=== PATIENT | male | born 1985 | race Caucasian/White ===

== ENCOUNTER 2021-05-10 16:00 | Emergency (ER) | payer MEDICAID ==
[~2021-05-10] VITALS: Ht 185.4 cm; Wt 90.9 kg
--- NOTE | 2021-05-10 16:15 | NUR ---
Pt. [facility] on [facility] 5150 for DTS. Per officer, he was running through traffic and and had to be physically restrained from running into traffic for his safety. Pt. is very psychotic AEB yelling out, thrashing about, and making non-sensical delusional statements. Security stood by for safety precautions while handcuffs were removed and pt. was assisted by staff to change into green scrubs with some resistance.
[2021-05-10] MEDS ORDERED: haloperidol lactate 5mg/ml inj IM ONE (16:25)
[2021-05-10] MEDS ORDERED: LORazepam 2 mg/ml vial IM ONE (16:25)
[2021-05-10] MEDS ORDERED: diphenhydrAMINE 50 mg/ml inj IM ONE (16:25)
[2021-05-10 16:50] LABS: BASOPHILS # (AUTO) 0.2 X10'3 (0-0.2); BASOPHILS % (AUTO) 1.3 % (0-1); EOSINOPHILS # (AUTO) 0.2 X10'3 (0-0.9); EOSINOPHILS % (AUTO) 1.5 % (0-6); HEMATOCRIT 39.1 % (42.0-52.0); HEMOGLOBIN 13.6 g/dl (14.0-17.9); LYMPHOCYTES # (AUTO) 3.7 X10'3 (1.1-4.8); LYMPHOCYTES % (AUTO) 29.9 % (21-51); MEAN CORPUSCULAR HEMOGLOBIN 30.3 PG (27.0-31.0); MEAN CORPUSCULAR HGB CONC 34.7 g/dL (33.0-36.5); MEAN CORPUSCULAR VOLUME 87.2 FL (78-98); MEAN PLATELET VOLUME 7.7 FL (7.4-10.4); MONOCYTES # (AUTO) 1.2 X10'3 (0-0.9); MONOCYTES % (AUTO) 9.7 % (2-12); NEUTROPHILS # (AUTO) 7.2 X10'3 (1.8-7.7); NEUTROPHILS % (AUTO) 57.6 % (42-75); PLATELET COUNT 425 X10'3 (140-440); RED BLOOD COUNT 4.48 X10'6 (4.70-6.10); RED CELL DISTRIBUTION WIDTH 15.5 % (11.5-14.5); WHITE BLOOD COUNT 12.5 X10'3 (4.5-11.0)
--- NOTE | 2021-05-10 16:50 | NUR ---
Pt. continued to exhibit increasing psychosis; yelling out profanities, and some aggression towards staff AEB posturing. He makes paranoid delusional statements and when questioned by staff why he was running through traffic pt. yells out, "They were [place] our [place], polluting [place] with [place]!" Pt. denies any S/I, however appears to be internally preoccupied. Security was called to standby for safety, and orders were obtained for IM Ativan 2mg, Benadryl 50mg, and Haldol 10mg. Pt. refused medications, but was compliant when show of force was shown by security and staff. Medications administered in bilateral ventrogluteal areas. Will continue to monitor.
[2021-05-10 17:07] LABS: ALANINE AMINOTRANSFERASE 24 U/L (12-78); ALBUMIN 4.7 G/DL (3.4-5.0); ALBUMIN/GLOBULIN RATIO 1.4 (1.1-1.5); ALKALINE PHOSPHATASE 75 IU/L (46-116); ANION GAP 15 (8-16); ASPARTATE AMINO TRANSFERASE 32 U/L (10-37); BILIRUBIN,TOTAL 0.7 MG/DL (0.1-1.0); BLOOD UREA NITROGEN 11 MG/DL (7-18); BUN/CREATININE RATIO 8.5 (5.4-32.0); CALCIUM 9.6 MG/DL (8.5-10.1); CHLORIDE 101 MMOL/L (99-107); GLUCOSE 144 MG/DL (70-104); POTASSIUM 3.2 MMOL/L (3.5-5.1); SODIUM 138 MMOL/L (135-145); TOTAL CARBON DIOXIDE 21.9 MMOL/L (24-32); eGFR 63 ML/MIN
[2021-05-10 17:17] LABS: ETHANOL < 0.010 GM/DL (0.0-0.010)
--- NOTE | 2021-05-10 17:23 | NUR ---
Pt states he has been seen at [facility] in [place] [phone]. Endoscopy Nurse called for medical records - department is closed through the holiday. LE said pt's parents were on their way. Pt unable to remember pt's phone number. When asked he yells out "they left me" then talks non sensical.
[2021-05-10] MEDS ORDERED: potassium Cl 20 mEq SR tablet PO STA (17:36)
--- NOTE | 2021-05-10 17:38 | NUR ---
Pt. is currently laying in bed eating snacks, he appears to only accept packaged snacks possibly related to paranoid delusional thoughts. Pt. is tearful at intervals, stating he misses his parents.This music writer provided pt. with juice and encouraged him to drink to rehydrate so a urine sample can be obtained. Pt. reported understanding. Also, pt's blood potassium level is decreased, endorsed to Dr. Jamison, and obtained orders for K-dur 20mEQ and Mag Ox 400mg.
[2021-05-10] MEDS ORDERED: magnesium oxide 400mg tablet PO ONE (17:40)
--- NOTE | 2021-05-10 17:52 | NUR ---
Covid Test completed and sent to lab, pt. tolerated well. Pt. is unable to urinate at this time, will continue to encourage fluids and endorse to Noc shift. Pt. is sleeping in bed at this time, will continue to monitor.
--- NOTE | 2021-05-10 17:59 | NUR ---
Unable to complete medical history or medication reconciliation r/t psychosis. Will endorse to Noc shift.
[2021-05-10] MEDS ORDERED: levoTHYROXINE 175mcg tablet PO ONE (18:55)
[2021-05-10] MEDS ORDERED: LEVO100T9 PO (18:58)
--- NOTE | 2021-05-10 19:53 | NUR ---
Pt sleeping snoring loudly at times. When awakedned pt upset made strange howling sound. When left alone went right back to sleep. Resp even and unlabored. Random Oximetry checked 95% on RA.
--- NOTE | 2021-05-10 23:06 | NUR ---
Pt continues to sleep through loud disruptive behavior by another pt. Snoring softly at times.
--- NOTE | 2021-05-11 01:44 | NUR ---
No change pt continues to sleep.
--- NOTE | 2021-05-11 06:04 | NUR ---
Awakened for VS cooperative back to sleep.
[2021-05-11] MEDS ORDERED: levoTHYROXINE 75mcg tablet PO SCH (07:00)
--- NOTE | 2021-05-11 07:01 | NUR ---
pt sleeping quietly
--- NOTE | 2021-05-11 09:53 | NUR ---
PT'S MOM JOANNA CALLED [phone]. PT LIVES WITH MOM IN [place]. PT HAS BEEN TREATED BY DR. PALACIOS, OR DR. CALIX, [facility] [phone]. PT MOTHER ALSO REQUESTED IF PT IS TO BE PLACED WOULD APPRECIATE IF IT COULD BE AROUND HERE OR [facility].
--- NOTE | 2021-05-11 12:04 | NUR ---
PT AWAKE UP TO BR. VOIDED CLEAR YELLOW, UA SENT
[2021-05-11 12:16] LABS: CLARITY,URINE CLEAR (Clear); COLOR,URINE YELLOW (Yellow); GLUCOSE, URINE NEGATIVE (Neg); KETONES,URINE TRACE mg/dl (Neg); LEUKOCYTE ESTERASE ,URINE NEGATIVE (Neg); NITRITES, URINE NEGATIVE (Neg); OCCULT BLOOD,URINE NEGATIVE (Neg); PROTEIN,URINE 30 mg/dl (Neg); UROBILINOGEN,URINE 0.2 E.U/dL (0.2-1.0)
[2021-05-11 12:22] LABS: URINE AMPHETAMINE SCREEN POSITIVE (Neg); URINE BARBITUATE SCREEN NEGATIVE (Neg); URINE BENZODIAZEPINES SCREEN NEGATIVE (Neg); URINE CANNABINOID SCREEN POSITIVE (Neg); URINE COCAINE SCREEN NEGATIVE (Neg); URINE METHADONE SCREEN NEGATIVE (Neg); URINE OPIATE SCREEN NEGATIVE (Neg); URINE PHENCYCLIDINE SCREEN NEGATIVE (Neg)
[2021-05-11 12:24] LABS: BACTERIA,URINE NONE SEEN /HPF (Neg); RBC,URINE 0-2 /HPF (0-2); UA COLLECTION TYPE CLN CATCH MIDSTREAM; WBC,URINE NONE SEEN /HPF (0-4)
[2021-05-11 12:25] LABS: MUCUS STRANDS FEW /LPF (Neg); SPERM FEW /HPF (NEGATIVE); SQUAMOUS EPITHELIAL CELL,UR NONE SEEN /LPF (FEW)
--- NOTE | 2021-05-11 14:21 | NUR ---
[facility] at bedside evaluating pt. pt upset and crying.
[2021-05-11] MEDS: levoTHYROXINE 75mcg tablet PO SCH (18:45)
--- NOTE | 2021-05-11 18:48 | NUR ---
Patient is laying on his right side sleeping. In direct view from the nurses station.
--- NOTE | 2021-05-11 19:41 | NUR ---
Patient is resting quietly in bed. No distress.
[2021-05-11] MEDS ORDERED: potassium Cl 20 mEq SR tablet PO STA (20:05)
--- NOTE | 2021-05-11 20:46 | NUR ---
Patient given KCL 40 mEq, he was also given Zyprexa 20 mg PO which he usually takes. Patient is followed by an MD in [place] who treats him for Schizophrenia.
[2021-05-11] MEDS ORDERED: olanzapine 10mg tablet PO SCH (21:00)
--- NOTE | 2021-05-11 22:03 | NUR ---
Patient sleeps quietly on his right side. He self re-positions. No distress.
--- NOTE | 2021-05-12 00:51 | NUR ---
Patient sleeping on his left side. No signs of distress. In view from nurses station.
--- NOTE | 2021-05-12 03:02 | NUR ---
Patient is sleeping quietly, supine in bed. No distress noted.
[2021-05-12 04:41] VITALS: BP 102/68
--- NOTE | 2021-05-12 04:51 | NUR ---
Patient is sleeping quietly on his right side. No distress.
--- NOTE | 2021-05-12 06:30 | NUR ---
PATIENT RECEIVED SLEEPING IN BED THIS MORNING. RESPIRATIONS EVEN, UNLABORED. NO S/S OF DISTRESS. WILL CONTINUE TO MONITOR.
--- NOTE | 2021-05-12 08:35 | NUR ---
Patient sitting in bed eating breakfast. He received his RTN morning medication with no difficulty and was cooperative with assessment. No change noted at this time.
[2021-05-12] MEDS: levoTHYROXINE 75mcg tablet PO SCH (08:38)
--- NOTE | 2021-05-12 10:30 | NUR ---
PATIENT OBSERVED SLEEPING SUPINE IN HIS ROOM AT THIS TIME. NO APPARENT DISTRESS NOTED. WILL CONTINUE TO MONITOR.
--- NOTE | 2021-05-12 12:19 | NUR ---
[facility] CALLED FOR POSSIBLE PLACEMENT. WANT PATIENTS POTASSIUM LEVEL RE-DRAWN. WILL NOTIFY
--- NOTE | 2021-05-12 12:30 | NUR ---
PATIENT CONTINUES SLEEPING ON HIS RIGHT SIDE IN BED. NO S/S OF DISTRESS NOTED. WILL CONTINUE TO MONITOR.
--- NOTE | 2021-05-12 12:44 | NUR ---
RECEIVED CALL FROM [facility]. PATIENT HAS BEEN ACCEPTED WITH AN APPROXIMATE SEMICONDUCTOR DEVELOPMENT TECHNICIAN TIME OF 1315 TODAY.
== END 2021-05-12 13:47 ==
LOC: ER 16:00
DX: F23 Brief psychotic disorder (principal); Z20.822 Contact with and (suspected) exposure to COVID-19; E03.9 Hypothyroidism, unspecified; R45.1 Restlessness and agitation; Z79.899 Other long term (current) drug therapy
CPT/HCPCS: 36415; 80053; 80305; 80320; 81001; 84443; 85025; 87635; 96372; 99285; C9803; J1200; J1630; J2060

== ENCOUNTER 2021-12-23 09:08 | Emergency (ER) | payer MEDICAID ==
[~2021-12-23] VITALS: Ht 182.9 cm; Wt 90.9 kg
[~2021-12-23 09:08] MED LIST: LEVO100T9 PO
[2021-12-23 09:35] VITALS: BP 120/78
[2021-12-23] MEDS ORDERED: hydrOXYzine 25 MG tablet PO ONE (10:30)
[2021-12-23] MEDS ORDERED: LORazepam 1 MG tablet PO ONE (10:30)
[2021-12-23] MEDS ORDERED: OLANZapine 2.5MG tablet PO SCH (10:30)
[2021-12-23] MEDS ORDERED: OLAN10TA73 PO (11:00)
[2021-12-23] MEDS ORDERED: HYDR-3686 PO (11:00)
== END 2021-12-23 11:21 | disposition home or self-care (01) ==
LOC: ER 09:20
DX: F20.0 Paranoid schizophrenia (principal); F20.9 Schizophrenia, unspecified; F41.9 Anxiety disorder, unspecified; Z79.899 Other long term (current) drug therapy
CPT/HCPCS: 99284; Q0177